=== PATIENT | male | born 1985 | race Caucasian/White ===

== ENCOUNTER 2017-10-22 07:47 | Outpatient (CLI) | payer OTHER | END 2017-10-22 07:48 | disposition home or self-care (01) | LOC: BICMRI 07:47 | PROVIDERS: ATTEND Nurse Practitioner Family | DX: M50.123 Cervical disc disorder at C6-C7 level with radiculopathy (principal); M99.81 Other biomechanical lesions of cervical region | CPT/HCPCS: 72141 ==

== ENCOUNTER 2017-12-10 15:01 | Emergency (ER) | payer BC ==
[2017-12-10 15:48] LABS: #Basophils 0.1 thou/uL (0.0-0.2); #Eosinphils 0.4 thou/uL (0.0-0.7); #Lymphocytes 3.4 thou/uL (1.20-3.40); #Neutrophils 4.2 thou/uL (1.40-6.50); %Basophils 0.7 % (0.0-1.0); %Eosinophils 4.6 % (0.0-10.0); %Lymphocytes 37.3 % (21.0-51.0); %Monocytes 11.2 % (0.0-10.0); %Neutrophils 46.2 % (42.0-75.0); Hemoglobin 13.5 g/dL (14.0-18.0); Mean Corpuscular HGB CONC 34.2 g/dL (32.0-36.0); Mean Corpuscular Hemoglobin 31.8 pg (27.0-31.0); Mean Corpuscular Volume 93.2 fl (80.0-94.0); Mean Platelet Volume 8.4 fL (7.4-10.4); Platelet Count 285 thou/uL (130-400); RBC Distribution Width 11.3 % (11.5-14.5); Red Blood Cell (RBC) Count 4.23 mill/uL (4.70-6.10)
[2017-12-10 16:09] LABS: ALT (SGPT) 72 U/L (8-55); AST (SGOT) 51 U/L (5-34); Albumin 4.6 g/dL (3.5-5.0); Alkaline Phosphatase 58 U/L (40-150); Anion Gap 16 mmol/L (10-20); BUN (Urea Nitrogen) 20 mg/dL (8.9-20.6); Bilirubin, Total 0.8 mg/dL (0.2-1.2); Calc. Creatinine Clearance 0 mL/min (70-130); Calcium 9.7 mg/dL (7.8-10.44); Carbon Dioxide 19 mmol/L (22-29); Chloride 106 mmol/L (98-107); Estimated GFR-MDRD 90; Globulin 2.5 g/dL (2.4-3.5); Glucose 84 mg/dL (70-105); Potassium 3.8 mmol/L (3.5-5.1); Protein, Total 7.1 g/dL (6.0-8.3); Sodium 137 mmol/L (136-145)
--- NOTE | 2017-12-10 16:31 | RAD ---
PA AND LATERAL CHEST: History: Dyspnea. Comparison: None. FINDINGS: No focal consolidation is evident. Cardiomediastinal silhouette is within normal limits. No acute oss eous abnormality is evident. IMPRESSION: No acute cardiopulmonary abnormality. POS: [facility]
[2017-12-10 17:15] LABS: Bilirubin Negative (Negative); Blood, Urine Negative (Negative); Clarity CLEAR (Clear); Glucose, Urine (Dipstick) Negative (Negative); Leukocyte Negative (Negative); Nitrite Negative (Negative); Protein, Urine (Dipstick) Negative (Neg-Trace); Specific Gravity, Urine 1.012 (1.002-1.036); Urobilinogen 0.2 mg/dL (0.2-1.0)
[2017-12-10 19:14] LABS: Troponin I Less than 0.010 ng/mL (< 0.028)
[2017-12-10 19:19] LABS: CKMB 12.9 ng/mL (0-6.6)
--- NOTE | 2017-12-10 20:34 | ULT ---
BILATERAL LOWER EXTREMITY VENOUS DUPLEX STUDY: Technique: Color doppler, spectral analysis and compression studies performed on the deep veins of joseph th lower extremities. History: Bilateral leg pain and edema. FINDINGS: Deep veins of both lower extremities show normal blood flow and compression. No evidence of DVT ident ified. IMPRESSION: Negative bilateral lower extremity venous duplex exam. POS: [facility]
== END 2017-12-10 21:06 | disposition home or self-care (01) ==
LOC: ERS 15:01
DX: R06.02 Shortness of breath (principal); T42.6X5A Adverse effect of other antiepileptic and sedative-hypnotic drugs, initial encounter; F17.210 Nicotine dependence, cigarettes, uncomplicated; Z79.899 Other long term (current) drug therapy
CPT/HCPCS: 36415; 71046; 80053; 81003; 82553; 83880; 84484; 85025; 93005; 93970